=== PATIENT | female | born 1995 | race Caucasian/White ===

== ENCOUNTER 2020-01-29 16:27 | Inpatient (IN) | payer OTHER ==
[~2020-01-29 16:27] MED LIST: Bupivacaine/Epinephrine 0.25% 30 ML VIAL ONE
[2020-01-29] MEDS ORDERED: hydrALAZINE 20 MG/ML VIAL ONE (16:40)
[2020-01-29 16:47] VITALS: BMI 37.3
[2020-01-29 16:56] LABS: Amnisure Internal Control QC ACCEPTABLE (ACCEPTABLE); Amnisure Test No Membranes Rupture (No Rupture)
[2020-01-29] MEDS ORDERED: Magnesium Sulfate 20 gm/500 ml 20 GM/500 ML BAG ONE (17:00)
[2020-01-29] MEDS ORDERED: Calcium Gluc 4.6 MEQ/10 ML (100 MG/ML) SLOW IVP PRN (17:05)
[2020-01-29] MEDS ORDERED: Acetaminophen 500 MG TAB PO PRN (17:05)
[2020-01-29] MEDS ORDERED: NS / Oxytocin 40 units/1000ml 1,000 ML IV PRN (17:05)
[2020-01-29] MEDS ORDERED: Lidocaine 1% (PF) 30 ML VIAL SC PRN (17:05)
[2020-01-29] MEDS ORDERED: Ondansetron PF 4 MG/2 ML Vial IVP PRN ×2 (17:05→21:32)
[2020-01-29] MEDS ORDERED: Promethazine HCl 25 MG/ML VIAL IM PRN ×2 (17:05→21:32)
[2020-01-29] MEDS ORDERED: hydrALAZINE 20 MG/ML VIAL SLOW IVP PRN (17:05)
[2020-01-29] MEDS ORDERED: Labetalol HCl 100 MG/20 ML VIAL SLOW IVP PRN (17:08)
[2020-01-29] MEDS ORDERED: NS w/ Oxytocin 10 units 500 ML IV SCH (17:15)
[2020-01-29] MEDS ORDERED: Magnesium Sulfate 20 gm/500 ml 20 GM/500 ML BAG IVPB SCH (17:15)
[2020-01-29] MEDS ORDERED: Magnesium Sulfate 20 GM/WATER 500 ML BAG IVPB SCH (17:15)
--- NOTE | 2020-01-29 17:23 | PDOC.FPROB ---
[facility] OB H&P: Medications - Current Allergies/Adverse Reactions: Allergies Allergy/AdvReac Type Severity Reaction Status Date / Time No Known Allergies Allergy Verified 01/29/20 16:50 [facility] OB H&P: Vital Signs - Maternal Vital signs: Vital Signs - First Documented Temp Pulse Resp BP Pulse Ox 98.2 F 96 18 162/107 H 100 01/29/20 16:29 01/29/20 16:29 01/29/20 16:29 01/29/20 16:29 01/29/20 16:29 [facility] H&P: Results - Labs Lab results: Laboratory Results - last 24 hr 01/29/20 16:35 Amnio Swab Test No Membranes Rupture [facility] OB H&P: A/P - Problem List (1) Preeclampsia Current Visit: Yes Status: Acute Code(s): O14.90 - UNSPECIFIED PRE-ECLAMPSIA , UNSPECIFIED TRIMESTER Discussion: Date/Time: 01/29/20 1722 PCP: Leola HPI: Patient comes in for cramping and leaking of fluid which started earlier this AM. She states that when she woke up there was a small amount of fluid in her underwear. She states it did not persist but that she has had irregular cramping throughout the day which she likens to menstrual cramps. Still able to walk through these episodes. She affirms movement, denies cxns or bleeding. Denies MEHTA, visual changes, SOB, or swelling. History: OB hx: Term , miscarriage, gHTN per patient report PMH: denies asthma, DM, or htn before PSH: neg Meds: PNV, asa, methyldopa, iron All: NKDA Soc Hx: denies smoking, alcohol, drugs Fam Hx: denies downs, congenital defects REVIEW OF SYSTEMS: Gen: no fever, chills, or sweats Neuro: no numbness/tingling, no weakness, denies headache ENT: denies congestion Eyes: no visual changes Resp: denies cough, no production, no SOB, no wheeze Card: denies chest pain, no palpitations GI: denies nausea, vomiting, diarrhea : no dysuria, no hematuria Skin: no rash, no erythema Psych: denies hx anxiety/depression Vitals: T: 98.5 R: 18 BP: 176/90 P:67 at: 98% on RA PHYSICAL EXAMINATION: General: NAD, alert and oriented x3 HEENT: EOMI, normal sclera Neck: Supple. Full ROM. Heart/Cardiovascular System: RRR, Cap refill < 3 seconds, no rub, no murmur Lungs/Respiratory System: clear to auscultation bilaterally. No increased work of breathing. Room air. Abdomen/Gastro-Intestinal System: no abdominal tenderness, normal bowel sounds, Gravid Extremities: Warm extremities. No cyanosis or edema. Neuro: No gross deficits appreciated Psychiatry: Awake, Alert and cooperative with exam Skin: no lesions, no rashes Musculoskeletal: Full ROM A/P: This is a 24 yo @ 37.3 wks being admitted for PIH with severe features FHT: 130 baseline, mod variability, no decels, accels present [place]: intermittent contractions # Superimposed PIH on gHTN - Admit for induction, AROM at 1715 - SVE 3/-2, neg amnisure - Hydralazine, labetalol IV PRN - Labetalol 400mg TID - Start magnesium as indicated - Patient admitted to Dr. 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
[2020-01-29] MEDS ORDERED: Labetalol 100 MG TAB PO SCH (18:00)
[2020-01-29] MEDS: Labetalol 100 MG TAB PO SCH (18:14)
[2020-01-29 18:30] LABS: Hemoglobin 10.1 g/dL (12.0-16.0); Mean Corpuscular HGB CONC 34.4 g/dL (32.0-36.0); Mean Corpuscular Hemoglobin 29.1 pg (27.0-31.0); Mean Corpuscular Volume 84.4 fL (78.0-98.0); Mean Platelet Volume 8.5 fL (7.4-10.4); Platelet Count 203 thou/uL (130-400); RBC Distribution Width 13.3 % (11.5-14.5); Red Blood Cell (RBC) Count 3.49 mill/uL (4.20-5.40); White Blood Cell (WBC) Count 11.3 thou/uL (4.8-10.8)
[2020-01-29 18:51] LABS: ALT (SGPT) 7 U/L (8-55); AST (SGOT) 11 U/L (5-34); Albumin 3.4 g/dL (3.5-5.0); Alkaline Phosphatase 133 U/L (40-110); Anion Gap 13 mmol/L (10-20); BUN (Urea Nitrogen) 4 mg/dL (7.0-18.7); Bilirubin, Total 0.4 mg/dL (0.2-1.2); Calc. Creatinine Clearance 243 mL/min (70-130); Calcium 9.2 mg/dL (7.8-10.44); Carbon Dioxide 21 mmol/L (22-29); Chloride 107 mmol/L (98-107); Estimated GFR-MDRD Greater than 90; Glucose 93 mg/dL (70-105); Potassium 3.1 mmol/L (3.5-5.1); Protein, Total 6.4 g/dL (6.0-8.3); Sodium 138 mmol/L (136-145)
[2020-01-29 19:08] LABS: Syphilis Antibody Nonreactive (Nonreactive); Syphilis Antibody Index 0.63 S/CO (<1.00 Non-Reactive)
[2020-01-29 19:09] LABS: HBSAg Index 0.18 S/CO (0-0.99); Hep B Surf Ag Non-Reactive S/CO (NonReactive)
[2020-01-29] MEDS ORDERED: Calcium Carbonate 500 MG ChewTAB PO SCH (19:15)
[2020-01-29] MEDS ORDERED: Fentanyl 4 mcg/Bup 0.1% Cadd 100 ML ONE (20:38)
[2020-01-29] MEDS: Lactated Ringer's 1,000 ML IV SCH (21:25)
[2020-01-29] MEDS ORDERED: diphenhydrAMINE 50 MG/ML VIAL IVP PRN (21:32)
[2020-01-29] MEDS ORDERED: Lactated Ringer's 500 ML IV PRN (21:32)
[2020-01-29] MEDS ORDERED: Naloxone HCl 0.4 mg/ml Vial IVP PRN ×2 (21:32)
[2020-01-29] MEDS ORDERED: Acetaminophen 325 MG TAB PO PRN (21:32)
[2020-01-29] MEDS ORDERED: EPHEDRINE 25 MG/5 ML SYRINGE SLOW IVP PRN (21:32)
[2020-01-29] MEDS ORDERED: Fentanyl 4 mcg/Bupivacaine 0.1% Cassette 100 ML EPIDURAL SCH (21:45)
[2020-01-29] MEDS ORDERED: Communication Order-Pharmacy FS SCH (21:45)
[2020-01-30] MEDS: Lactated Ringer's 1,000 ML IV SCH (02:10)
[2020-01-30] MEDS: Labetalol 100 MG TAB PO SCH ×3 (02:55→21:49)
[2020-01-30] MEDS ORDERED: Fentanyl 4 mcg/Bup 0.1% Cadd 100 ML ONE (03:58)
[2020-01-30] MEDS ORDERED: Misoprostol 200 MCG TAB ONE (04:06)
[2020-01-30] MEDS ORDERED: Adacel (T-DAP) 0.5 ML SYRINGE IM ONE (06:22)
[2020-01-30] MEDS ORDERED: Benzocaine-Menthol 82.5 ML CAN TOP PRN (06:22)
[2020-01-30] MEDS ORDERED: Misoprostol 200 MCG TAB VAG PRN (06:22)
[2020-01-30] MEDS ORDERED: Milk Of Magnesia 30 ML UDCUP PO PRN (06:22)
[2020-01-30] MEDS ORDERED: hydrALAZINE 20 MG/ML VIAL SLOW IVP PRN (06:22)
[2020-01-30] MEDS ORDERED: Ondansetron PF 4 MG/2 ML Vial IVP PRN (06:22)
[2020-01-30] MEDS ORDERED: Zolpidem Tartrate 5 MG TAB PO PRN (06:22)
[2020-01-30] MEDS ORDERED: Acetaminophen/Codeine 30-300mg Tablet PO PRN ×2 (06:22)
[2020-01-30] MEDS ORDERED: Lanolin Ointment 7 GM TUBE TOP PRN (06:22)
[2020-01-30] MEDS ORDERED: diphenhydrAMINE 25 MG CAP PO PRN (06:22)
[2020-01-30] MEDS ORDERED: Bisacodyl 10 MG SUPP PR PRN (06:22)
[2020-01-30] MEDS ORDERED: Preparation H Ointment 28 GM TUBE PR PRN (06:22)
[2020-01-30] MEDS ORDERED: NS / Oxytocin 40 units/1000ml 1,000 ML IV SCH (06:30)
[2020-01-30] MEDS: Prenatal Vitamin 1 TAB PO SCH (09:45)
[2020-01-30] MEDS: Docusate Calcium (SURFAK) 240 MG CAP PO SCH ×2 (09:45→21:49)
[2020-01-30] MEDS: Ferrous Sulfate 325 MG TAB PO SCH ×2 (09:48→16:22)
[2020-01-30] MEDS: Ibuprofen 800 MG TAB PO SCH ×2 (14:07→21:49)
[2020-01-31] MEDS: Ibuprofen 800 MG TAB PO SCH (05:33)
[2020-01-31 06:52] LABS: #Basophils 0.1 thou/uL (0.0-0.2); #Eosinphils 0.3 thou/uL (0.0-0.7); #Lymphocytes 3.6 thou/uL (1.20-3.40); #Monocytes 0.9 thou/uL (0.11-0.59); #Neutrophils 8.4 thou/uL (1.40-6.50); %Basophils 0.7 % (0.0-1.0); %Eosinophils 2.4 % (0.0-10.0); %Monocytes 6.6 % (0.0-10.0); %Neutrophils 63.3 % (42.0-75.0); Hemoglobin 8.8 g/dL (12.0-16.0); Mean Corpuscular HGB CONC 32.7 g/dL (32.0-36.0); Mean Corpuscular Hemoglobin 28.7 pg (27.0-31.0); Mean Corpuscular Volume 87.8 fL (78.0-98.0); Mean Platelet Volume 8.8 fL (7.4-10.4); Platelet Count 214 thou/uL (130-400); RBC Distribution Width 13.6 % (11.5-14.5); Red Blood Cell (RBC) Count 3.05 mill/uL (4.20-5.40); White Blood Cell (WBC) Count 13.3 thou/uL (4.8-10.8)
[2020-01-31 07:42] VITALS: BP 135/76; TEMP 98
[2020-01-31] MEDS: Docusate Calcium (SURFAK) 240 MG CAP PO SCH (08:32)
[2020-01-31] MEDS: Ferrous Sulfate 325 MG TAB PO SCH (08:32)
[2020-01-31] MEDS: Prenatal Vitamin 1 TAB PO SCH (08:32)
[2020-01-31] MEDS: Labetalol 100 MG TAB PO SCH (08:32)
== END 2020-01-31 11:50 | disposition home or self-care (01) | DRG 807 ==
LOC: L&D/OP 16:27 → L&D 17:59 → 3SW 01-30 08:30
PROVIDERS: ADMIT Obstetrics & Gynecology; ATTEND Obstetrics & Gynecology
PROC: 10E0XZZ Delivery of Products of Conception, External Approach (ICD-10-PCS; principal; 2020-01-30)
PROC: 0KQM0ZZ Repair Perineum Muscle, Open Approach (ICD-10-PCS; 2020-01-30)
PROC: 10907ZC Drainage of Amniotic Fluid, Therapeutic from Products of Conception, Via Natural or Artificial Opening (ICD-10-PCS; 2020-01-30)
PROC: 3E033VJ Introduction of Other Hormone into Peripheral Vein, Percutaneous Approach (ICD-10-PCS; 2020-01-30)
DX: O13.3 Gestational [pregnancy-induced] hypertension without significant proteinuria, third trimester (principal); Z37.0 Single live birth; Z3A.37 37 weeks gestation of pregnancy; O70.1 Second degree perineal laceration during delivery; O14.14 Severe pre-eclampsia complicating childbirth
CPT/HCPCS: 36415; 51702; 80053; 84112; 85025; 85027; 86780; 86850; 86900; 86901; 87340; 99285; J0360; J2590; J3475